=== PATIENT | male | born 1970 | race Caucasian/White ===

== ENCOUNTER 2016-11-19 19:23 | Emergency (ER) | payer BC ==
[~2016-11-19] VITALS: Ht 177.8 cm; Wt 100.8 kg
[~2016-11-19 19:23] MED LIST: AMLO1CAP58 PO; ASPI-611 PO; HYDR-4246 PO; OMEP40CA11 PO; PRED20TA PO
--- OUTSIDE RECORDS SUMMARY | 2016-11-19 19:27 | XMS REPORT | Continuity of Care Document ---
Author Author [facility] Organization [facility] Address Unknown Phone Unavailable Allergies Active Description Code Type Severity Reaction Onset Reported/Identified Relationship to Patient Clinical Status Yes No Known Medication Allergies NKMA N/A N/A Medications Problems Procedures Results Encounters ACCT No. Visit Date/Time Discharge Status Pt. Type Provider Facility Loc./Unit Complaint [id number] 04/04/2015 09:35:00 2014 23:59:00 DIS Outpatient Alejandro Snell [facility] New IC RT SHOULDER PAIN
--- OUTSIDE RECORDS SUMMARY | 2016-11-19 19:27 | XMS REPORT | Referral Summary ---
Author Author [facility] Organization [facility] Address Unknown Phone Unavailable Care Team Providers Care Authorization Manager Name Role Phone Nicole Hutson II Primary Care Physician [phone] Encounter [facility] [id number] Date(s): 04/04/15 - 04/04/15 [facility] [address] [place] [address] Discharge Diagnosis: Right shoulder strain Discharge Disposition: 01-Home or Self Care Attending Physician: Alejandro Snell MD Admitting Physician: Alejandro Snell MD Vital Signs Most recent to 1 oldest [Reference Range]: Temperature Tympanic 37.0 degC [36.6-38.1 degC] (04/04/15 9:46 AM) Peripheral Pulse 99 bpm Rate [60-100 bpm] (04/04/15 9:46 AM) Respiratory Rate 17 br/min [14-20 br/min] (04/04/15 9:46 AM) Blood Pressure 140/100 mmHg [90-140/60-90 mmHg] (04/04/15 9:46 AM) SpO2 96 % (04/04/15 9:46 AM) Problem List No data available for this section Allergies, Adverse Reactions, Alerts No Known Medication Allergies Medications Aspir 81 mg, Oral, Daily, 0 Refill(s) Start Date: 04/04/15 Status: Ordered diclofenac sodium 75 mg oral delayed release tablet 75 mg 1 tabs, Oral, BID, # 40 tabs, 0 Refill(s), Pharmacy: [id number], 1 tabs Oral BID Start Date: 04/04/15 Status: Ordered Lotrel 5 mg-20 mg oral capsule 1 caps, Oral, Daily, # 30 caps, 0 Refill(s) Start Date: 04/04/15 Status: Ordered omeprazole 20 mg oral delayed release capsule 20 mg 1 caps, Oral, Daily, # 30 caps, 0 Refill(s) Start Date: 04/04/15 Status: Ordered Results No data available for this section Immunizations No data available for this section Procedures No data available for this section Social History Social History Type Response Smoking Status Never smoker Assessment and Plan Extracted from: Title: Office Visit Note Author: Alejandro Snell MD Date: 04/04/15 Assessment/Plan Right shoulder strain I've recommended diclofenac 75 mg twice a day with food. Rest and ice over the next several days. 10 pound weight restriction for the next week. If not improving during that timeframe he should follow-up with his regular physician. Ordered: Office Visit Level 3 Est [id number] Orders: diclofenac, 75 mg 1 tabs, Oral, BID, # 40 tabs, 0 Refill(s), Pharmacy : [id number], 1 tabs Oral BID
--- OUTSIDE RECORDS SUMMARY | 2016-11-19 19:28 | XMS REPORT | Continuity of Care Document ---
Author Author [facility] Organization [facility] Address Unknown Phone Unavailable Support Name Relationship Address Phone ROSE HAY MD Caregiver [facility] [address] [place] [address] Unavailable BONNY HOLDER II, MD Caregiver [address] [place], [place] [phone] [place] Next Of Kin [address] [place], [place] [id number] Insurance Providers Payer Name Policy Number Subscriber Name Relationship [facility] [id number] Devonte Noe 16 Self Advance Directives Directive Response Recorded Date/Time Advanced Directives Type None 04/05/14 10:27pm Problems Medical Problems Problem Onset Date Status Allergic conjunctivitis Unknown Active Medications Medication Dose Route Sig Days/Qty Instructions Order Date Discontinued Date Status Rabeprazole Sodium 20 Mg PO DAILY 08/12/08 07/13/09 Discontinued Amlodipine Besylate/Benazepril 1 Cap PO DAILY 07/14/09 Active Hydrocodone Bit/Acetaminophen 1 Tab PO NEEDED 08/12/08 05/31/09 Discontinued Amitriptyline Hcl 50 Mg PO BEDTIME 08/12/08 05/31/09 Discontinued Prednisone 20 Mg PO 07/29/08 08/12/08 Discontinued Temazepam 15 Mg PO BEDTIME 08/12/08 05/31/09 Discontinued Oxycodone Hcl/Acetaminophen 2 Tab PO BEDTIME 07/29/08 08/12/08 Discontinued Aspirin 81 Mg PO DAILY 07/14/09 Active [[id number]] 40 Mg PO DAILY 07/14/09 03/06/11 Discontinued Omeprazole 40 Mg PO DAILY 03/06/11 Active Prednisone 40 Mg PO GIVE WITH BREAKFAST 10 Qty Take 2 (20 mg) tablets, by mouth, once a day with breakfast. 04/05/14 Active Hydrocodone/Acetaminophen 1-2 Tab PO Every 6 Hours PRN PAIN 30 Qty 01/11 Active Social History Social History Problem Response Recorded Date/Time Smoking Status Never smoker 04/05/2014 10:16pm Hx Substance Use No 04/05/2014 10:16pm Hx Alcohol Use Y 3 BEERS EACH NIGHT AND LIQOUR ON WEEKENDS 04/05/2014 10:16pm Hospital Discharge Instructions No hospital discharge instructions. Plan of Care No plan of care. Functional Status Query Response Date Recorded Physical Hygiene Self April 05, 2014 10:16pm Disabilities None April 05, 2014 10:16pm Devices Used None April 05, 2014 10:16pm Dressing Self April 05, 2014 10:16pm Ambulation Self April 05, 2014 10:16pm Diet Self April 05, 2014 10:16pm Mental Status Alert April 05, 2014 10:16pm Disabilities None April 05, 2014 10:16pm Devices Used None April 05, 2014 10:16pm Physical Hygiene Self April 05, 2014 10:16pm Dressing Self April 05, 2014 10:16pm Ambulation Self April 05, 2014 10:16pm Diet Self April 05, 2014 10:16pm Allergies, Adverse Reactions, Alerts Allergen Type Severity Reaction Status Last Updated sodium Allergy Mild RASH Active 03/06/11 sodium chloride Allergy Mild RASH Active 03/06/11 Sodium Sulfate Allergy Mild RASH Active 04/05/14 Sodium Sulfate Anhydrous Allergy Mild RASH Active 04/05/14 sodium bicarbonate Allergy Mild RASH Active 03/06/11 Polyethylene glycol Allergy Mild RASH Active 03/06/11 polyethylene glycol 3350 Allergy Mild RASH Active 04/05/14 potassium chloride Allergy Mild RASH Active 03/06/11 Immunizations Name Given Type Hx Influenza Vaccination Y 05/15/09 MIST Historical Hx Pneumococcal Vaccination No Historical Hx Tetanus, Diptheria, Pertussis UP TO DATE Historical Hx Influenza Vaccination Y 05/15/09 MIST Historical Hx Tetanus, Diptheria, Pertussis UP TO DATE Historical Vital Signs Acute Vital Signs Vital Response Date/Time Temperature (Fahrenheit) 99.7 deg F (96.8 - 99.1) Temperature (Calculated Celsius) 37.89123 degrees C (36.0 - 37.3) Pulse Rate (adult) 82 bpm (60 - 100) Respiratory Rate 16 breaths/min (10 - 20) O2 Sat by Pulse Oximetry 95 % (90 - 100) Blood Pressure 108/68 mm Hg Height 5 ft 10 in Weight 219 lb Body Mass Index 31.0 kg/m^2 Results Test Source Date Result Interp. Ref. Range Comments Alanine Aminotransferase (ALT/SGPT) March 06, 2011 4:23am 33 U/L N 21- 72 Albumin March 06, 2011 4:23am 4.0 G/DL N 3.5-5.0 Albumin/Globulin Ratio March 06, 2011 4:23am 1.3 RATIO N 1.1-2.2 Alkaline Phosphatase March 06, 2011 4:23am 97 U/L N 38-126 Amylase Level July 13, 2009 10:28pm 51 U/L N 30-110 Anion Gap March 06, 2011 4:23am 8 MEQ/L N 5-15 Aspartate Amino Transf (AST/SGOT) March 06, 2011 4:23am 26 U/L N 17-59 BUN/Creatinine Ratio March 06, 2011 4:23am 12 RATIO N 6-26 Band Neutrophils # July 15, 2009 4:25am 0.6 T/MM3 - Band Neutrophils % July 15, 2009 4:25am 10.0 % H 0-6 Basophils # (Auto) May 31, 2009 3:37pm 0.0 T/MM3 N 0-0.2 Basophils # (Manual) July 15, 2009 4:25am 0.0 T/MM3 N 0-0.2 Basophils % (Manual) July 15, 2009 4:25am 0.0 % N 0-2 Basophils (%) (Auto) May 31, 2009 3:37pm 0.2 % N 0-2 Blood Urea Nitrogen March 06, 2011 4:23am 16.0 MG/DL N 9-20 C-Reactive Protein July 15, 2009 4:25am 21.5 MG/L H 0-9 Calcium Level March 06, 2011 4:23am 9.0 MG/DL N 8.4-10.2 Calculated Osmolality March 06, 2011 4:23am 267 MOSM/KG N 261-280 Carbon Dioxide Level March 06, 2011 4:23am 25 MEQ/L N 22-30 Chloride Level March 06, 2011 4:23am 105 MEQ/L N 98-107 Creatinine March 06, 2011 4:23am 1.3 MG/DL N 0.8-1.5 Eosinophils # (Auto) May 31, 2009 3:37pm 0.0 T/MM3 N 0-0.5 Eosinophils # (Manual) July 15, 2009 4:25am 0.1 T/MM3 N 0-0.5 Eosinophils % (Manual) July 15, 2009 4:25am 1.0 % N 0-4 Eosinophils (%) (Auto) May 31, 2009 3:37pm 0.4 % N 0-4 Globulin March 06, 2011 4:23am 3.0 G/DL N 2.4-3.6 Glucose Level March 06, 2011 4:23am 95 MG/DL N 75-110 Hematocrit March 06, 2011 4:23am 39.4 % L 41-53 Hemoglobin March 06, 2011 4:23am 13.5 GM/DL N 13.5-17.5 Lipase July 13, 2009 10:28pm 56 U/L N 23-300 Lymphocytes # (Auto) May 31, 2009 3:37pm 1.5 T/MM3 N 1-4.8 Lymphocytes # (Manual) March 06, 2011 4:23am 0.8 T/MM3 L 1-4.8 Lymphocytes % (Manual) March 06, 2011 4:23am 5.0 % L 23-45 Lymphocytes (%) (Auto) May 31, 2009 3:37pm 15.5 % L 23-45 Magnesium Level March 06, 2011 4:23am 1.9 MG/DL N 1.6-2.3 Mean Corpuscular Hemoglobin March 06, 2011 4:23am 29.9 UUG N 26-34 Mean Corpuscular Hemoglobin Concent March 06, 2011 4:23am 34.3 GM/DL N 31-37 Mean Corpuscular Volume March 06, 2011 4:23am 87.2 UM3 N 80-100 Mean Platelet Volume March 06, 2011 4:23am 9.8 UM3 N 9.4-12.4 Monocytes # (Auto) May 31, 2009 3:37pm 1.0 T/MM3 H 0-0.8 Monocytes # (Manual) March 06, 2011 4:23am 0.8 T/MM3 N 0-0.8 Monocytes % (Manual) March 06, 2011 4:23am 5.0 % N 0-9.0 Monocytes (%) (Auto) May 31, 2009 3:37pm 10.3 % H 0-9.0 Neutrophils # (Auto) May 31, 2009 3:37pm 7.2 T/MM3 N 1.8-7.7 Neutrophils # (Manual) March 06, 2011 4:23am 14.7 T/MM3 H 1.8-7.7 Neutrophils % (Manual) March 06, 2011 4:23am 90.0 % H 33-66 Neutrophils (%) (Auto) May 31, 2009 3:37pm 73.6 % H 33-66 Phosphorus Level March 06, 2011 4:23am 2.2 MG/DL L 2.5-4.5 Platelet Count March 06, 2011 4:23am 317 T/MM3 N 130-400 Potassium Level March 06, 2011 4:23am 4.1 MEQ/L N 3.6-5 RDW Standard Deviation March 06, 2011 4:23am 39.1 FL N 36.9-50.2 Red Blood Count March 06, 2011 4:23am 4.52 M/MM3 N 4.50-5.90 Sodium Level March 06, 2011 4:23am 138 MEQ/L N 134-144 Tests Not Done May 31, 2009 2:55pm Not done - Has specimen been collected/obtained? Y Total Bilirubin March 06, 2011 4:23am 0.60 MG/DL N 0.20-1.30 Total Creatine Kinase March 06, 2011 4:23am 211 U/L H 55-170 Total Protein March 06, 2011 4:23am 7.0 G/DL N 6.3-8.2 Urine Bacteria July 13, 2009 11:33pm 1+ - Has specimen been collected/obtained? Y Urine Bilirubin July 13, 2009 11:33pm Negative - Has specimen been collected/obtained? Y Urine Blood July 13, 2009 11:33pm Negative - Has specimen been collected/obtained? Y Urine Collection Type July 13, 2009 11:33pm Voided - Has specimen been collected/obtained? Y Urine Color July 13, 2009 11:33pm Yellow - Has specimen been collected/obtained? Y Urine Culture Indicated July 13, 2009 11:33pm Cult not set up - Has specimen been collected/obtained? Y Urine Glucose (UA) July 13, 2009 11:33pm Negative - Has specimen been collected/obtained? Y Urine Hyaline Casts July 13, 2009 11:33pm 3-5 /LPF - Has specimen been collected/obtained? Y Urine Ketones July 13, 2009 11:33pm Negative - Has specimen been collected/obtained? Y Urine Leukocyte Esterase July 13, 2009 11:33pm Negative - Has specimen been collected/obtained? Y Urine Mucus July 13, 2009 11:33pm Present - Has specimen been collected/obtained? Y Urine Nitrite July 13, 2009 11:33pm Negative - Has specimen been collected/obtained? Y Urine Protein July 13, 2009 11:33pm Trace H - Has specimen been collected/obtained? Y Urine RBC July 13, 2009 11:33pm None seen /HPF - Has specimen been collected/obtained? Y Urine Specific [place] July 13, 2009 11:33pm 1.010 L - Has specimen been collected/obtained? Y Urine Squamous Epithelial Cells July 13, 2009 11:33pm Few - Has specimen been collected/obtained? Y Urine Turbidity July 13, 2009 11:33pm Clear - Has specimen been collected/obtained? Y Urine Urobilinogen July 13, 2009 11:33pm Normal EU/DL - Has specimen been collected/obtained? Y Urine WBC July 13, 2009 11:33pm None seen /HPF - Has specimen been collected/obtained? Y Urine pH July 13, 2009 11:33pm 5.0 - Has specimen been collected/ obtained? Y White Blood Count March 06, 2011 4:23am 16.3 T/MM3 H 4.5-11.0 Glomerular Filtration Rate Calc March 06, 2011 4:23am 61 - Blood Culture Blood May 31, 2009 3:37pm NO GROWTH AFTER 5 DAYS Stool Culture Stool July 14, 2009 11:10pm Helicobacter pylori Rapid Urease Gastric Biopsy July 15, 2009 3:45pm Procedures No known history of procedures. Encounters Encounter Location Date/Time Departed Emergency Room [facility] 04/05/14 9:55pm Recent Diagnosis
[2016-11-19 19:35] VITALS: Ht 177.8 cm; Wt 100.8 kg
[2016-11-19] MEDS ORDERED: PRAV10TA42 PO (19:38)
[2016-11-19] MEDS ORDERED: PRAV40TA3 PO (19:39)
--- NOTE | 2016-11-19 19:40 | ERPDOC ---
Departure Disposition Decision Date: Nov 19, 2016 Disposition Decision Time: 20:29 Disposition: 01 DISCHARGED HOME, SELF-CARE Impression Impression Impression: Primary Impression: Laceration of right thigh Encounter type: initial encounter Qualified Codes: S71.111A - Laceration without foreign body, right thigh, initial encounter Severity: Moderate Condition: Improved Seen By: Mid-level only Referrals: BONNY HOLDER II, MD (Family) Patient Instructions: Laceration (ED), Care For Your Stitches (ED) Problems/Meds/Labs Reviewed?: Yes Medications reviewed and manag: Yes Additional Instructions: Suture removal on December 02 in your PCP's office. Wash daily with soap and water and then apply triple antibiotic ointment and a clean dressing. (do not immerse in water) Take cephalexin 500mg three times daily for 1 week. You may take OTC Tylenol or ibuprofen as needed for pain. Follow treatment plan. Follow up care ordered?: Yes Mental Status: Alert Scripts Cephalexin (Cephalexin) 500 Mg Tablet 1 TAB PO TID for 7 Days, #21 TAB Prov: JACQUIE BOWMAN CLINICAL WRITER 11/19/16 HPI - Lower Extremity General Chief Complaint: Laceration Stated Complaint: CUT LEG W/CHAIN SAW Time Seen by Provider: 19:40 Source: patient HPI - Lower Extremity Initial Comments 46 YO M presents to ED for evaluation of laceration to anterior right thigh approx. 1 hour ago. Patient was cutting tree limb with chain saw. Patient clipped right thigh with saw with bringing down his arm. Applied directed pressure to thigh. Unknown last tetanus. Occurred At: home Duration: 1 hr Pain/Severity Scale: Now: 3/10 Pain/Injury Location: right thigh Quality: sharpness Allergies: Coded Allergies: Sodium Sulfate (Verified Allergy, Mild, RASH, 11/19/16) Sodium Sulfate Anhydrous (Verified Allergy, Mild, RASH, 11/19/16) polyethylene glycol (Verified Allergy, Mild, RASH, 11/19/16) polyethylene glycol 3350 (Verified Allergy, Mild, RASH, 11/19/16) potassium chloride (Verified Allergy, Mild, RASH, 11/19/16) sodium (Verified Allergy, Mild, RASH, 11/19/16) sodium bicarbonate (Verified Allergy, Mild, RASH, 11/19/16) sodium chloride (Verified Allergy, Mild, RASH, 11/19/16) Past History Past Medical History Metabolic: hypercholesterolemia, hypertension Cardiac: DENIES: angina Respiratory: DENIES: asthma GI: GERD, ulcers Male: DENIES: renal insufficiency Neurological: DENIES: seizures Musculoskeletal: DENIES: rheumatoid arthritis Psychological: DENIES: depression Surgical History General: EGD, appendix, colonoscopy, tonsils Family History Family PMH: FOUND: other (noncontributory) Vaccines Hx Influenza Vaccination: Yes (05/15/09 MIST) Hx Pneumococcal Vaccination: No Social History Marital Status: Sexuality: female partner Current Occupational Status: employed Review of Systems Constitutional Constitutional: DENIES: chills, dizziness, fever, weakness Eyes General: DENIES: erythema, exudate Lids/Accessories: DENIES: erythema, swelling ENMT Ears: DENIES: pain Sinuses: DENIES: congestion, rhinorrhea Mouth/Throat: DENIES: sore throat Cardiovascular Cardiac: DENIES: chest pain, murmur Rhythm/Rate: DENIES: palpitations Pulmonary Respiratory: DENIES: cough, dyspnea GI Upper Abdomen: DENIES: nausea, pain, vomiting Lower Abdomen: DENIES: diarrhea, pain General: DENIES: dysuria, pain Musculoskeletal General: DENIES: joint pain, pain, tenderness Integumentary Skin: other (laceration), see HPI, DENIES: itching, rash Neurological General: DENIES: ataxia, change in strength, numbness, paralysis/paresis, weakness Psychiatric Psychiatric: DENIES: anxiety, depression, nervousness Physical Exam General General Nourishment: well nourished, well developed, adult General Body Habitus: disheveled Vitals and Pain Weight: Kilograms: Height (feet): 5 Height (inches): 10 Triage Pain Scale: Eyes (brief) Eyes Brief: found: EOMI ENMT (brief) ENMT Brief: NOT FOUND: nasal exudate, nasal swelling Neck (brief) Neck: FOUND: trachea midline Respiratory (brief) Respiratory: FOUND: clear all burgos, equal bilaterally, symmetrical Cardiovascular (brief) Cardiac: FOUND: regular rate, regular rhythm Musculoskeletal Extremity : Side: Right Extremity: thigh Extremity Findings: FOUND: laceration (see below), NOT FOUND: deformity, discoloration, swelling Comments Approx. 4.5 cm full thickness laceration to distal anterior right thigh, oozing blood. Differential Diagnoses Considering: Laceration Procedures Procedures Performed Procedures Performed: Laceration Repair Laceration/Wound Repair Wound/Laceration Repair : Wound Location: lower extremity Wound Length (cm): 4.5 Depth, Shape: subcutaneous Explored: clean Irrigated: saline Anesthesia: 1% Lidocaine c Epi Volume Anesthetic (ccs): 9 Type of Block: local Wound Debrided: minimal Repaired With: Sutures Suture Size: 4:0 Suture Type: prolene Number of Sutures: 4 Layer Closure?: No Sterile Dressing Applied?: Yes Progress Heat cautery was used for hemostasis control. Progress Results/Orders Orders Procedure Category Date Status Time Lidocaine 1% / Epi PHA 11/19/16 Complete 1:100,000 (Xylocaine 19:45 Tetanus,Diphth,A PHA 11/19/16 Complete Pertus (Tdap) (Adacel) 19:45 Dressing (Ed) EDM 11/19/16 Transmitted 20:33 Cephalexin Capsule PHA 11/19/16 Complete (Keflex) 20:45 Neomycin/Polymyxin/Bacitracin PHA 11/19/16 Complete (Neosporin 20:45 Medications Current ED Medications Lidocaine/ Epinephrine (Xylocaine 1%/ Epi 1:100,000) 20 ml O ONCE SQ Last administered on 11/19/16 19:45; Start 11/19/16 at 19:45; Stop 11/19/16 at 19:46 ; Status DC Diphtheria/ Tetanus/Acell Pertussis (Adacel) 0.5 ml O ONCE IM Last administered on 11/19/16 20:30; Start 11/19/16 at 19:45; Stop 11/19/16 at 19:46 ; Status DC Neomycin/ Polymyxin/ Bacitracin (Neosporin) 1 applic O ONCE TOP Last administered on 11/19/16 20:45; Start 11/19/16 at 20:45; Stop 11/19/16 at 20:46 ; Status DC Cephalexin HCl (Keflex) 500 mg O ONCE PO Last administered on 11/19/16 20:49 ; Start 11/19/16 at 20:45; Stop 11/19/16 at 20:46; Status DC Progress Progress I discussed wound care/treatment plan, follow up with PCP and return precautions with patient who verbalized understanding. Patient was placed on cephalexin prophylactically and tetanus updated. JACQUIE BOWMAN APRN Nov 19, 2016 19:40
[2016-11-19] MEDS ORDERED: TETANUS,DIPHTH,a PERTUS (Tdap) 0.5 ML VIAL IM ONE (19:45)
[2016-11-19] MEDS ORDERED: LIDOCAINE 1%/EPI 1:100,000 20ml MDV SQ ONE (19:45)
[2016-11-19] MEDS ORDERED: CEPH500T PO (20:31)
[2016-11-19] MEDS ORDERED: CEPHALEXIN 500 MG CAPSULE PO ONE (20:45)
[2016-11-19] MEDS ORDERED: NEOMYCIN/POLYM/BACITR OINT PACKET TOP ONE (20:45)
[2016-11-19 20:50] VITALS: BP 115/70; PULSE 89; RESP 16; TEMP 98.2; O2SAT 97
--- OUTSIDE RECORDS SUMMARY | 2016-11-19 21:00 | XMS REPORT | Continuity of Care Document ---
Author Author [facility] Organization [facility] Address Unknown Phone Unavailable Allergies Active Description Code Type Severity Reaction Onset Reported/Identified Relationship to Patient Clinical Status Yes No Known Medication Allergies NKMA N/A N/A Medications Problems Procedures Results Encounters ACCT No. Visit Date/Time Discharge Status Pt. Type Provider Facility Loc./Unit Complaint [id number] 04/04/2015 09:35:00 2014 23:59:00 DIS Outpatient Alejandro Snell [facility] New IC RT SHOULDER PAIN
--- OUTSIDE RECORDS SUMMARY | 2016-11-19 21:00 | XMS REPORT | Continuity of Care Document ---
Author Author [facility] Organization [facility] Address Unknown Phone Unavailable Support Name Relationship Address Phone ROSE HAY MD Caregiver [facility] [address] [place] [address] Unavailable BONNY HOLDER II, MD Caregiver [address] [place], [place] [phone] [place] Next Of Kin [address] [place], [place] [id number] Insurance Providers Payer Name Policy Number Subscriber Name Relationship [facility] [id number] Devonte Noe 18 Self Advance Directives Directive [...] Aspirin 81 Mg PO DAILY 07/14/09 Active [[id number]] 40 Mg PO DAILY 07/14/09 03/06/11 Discontinued [...] F (96.8 - 99.1) Temperature (Calculated Celsius) 37.81159 degrees C (36.0 - 37.3) Pulse Rate [...] Has specimen been collected/obtained? Y Urine Specific [place] July 13, 2009 11:33pm 1.010 L - [...] Encounters Encounter Location Date/Time Departed Emergency Room [facility] 04/05/14 9:55pm Recent Diagnosis
== END 2016-11-19 20:50 | disposition home or self-care (01) ==
LOC: ED 19:23
DX: S71.111A Laceration without foreign body, right thigh, initial encounter (principal); W29.3XXA Contact with powered garden and outdoor hand tools and machinery, initial encounter; Y93.H2 Activity, gardening and landscaping; Y92.007 Garden or yard of unspecified non-institutional (private) residence as the place of occurrence of the external cause; Y99.8 Other external cause status
CPT/HCPCS: 90471; 90715